=== PATIENT | female | born 1960 ===

== ENCOUNTER → 2018-04-14 | Outpatient (CLI) | payer OTHER ==
--- NOTE | 2018-04-14 15:11 | US ---
EXAMINATION TYPE: US pelvic complete DATE OF EXAM: 04/14/2018 COMPARISON: NONE CLINICAL HISTORY: N95.0 Post Sandra Bleeding. Patient had one episode of postmenopausal spotting in Sep tember TECHNIQUE: . Transabdominal sonographic images of the pelvis were acquired. Transvaginal exam not d one- patient speaks broken [place] and did not understand most directions nor could she answer many h istory questions Date of LMP: Unknown EXAM MEASUREMENTS: Uterus: 5.7 x 2.5 x 3.2 cm Endometrial Stripe: 0.3 cm Right Ovary: 1.1 x 0.8 x 0.9 cm Left Ovary: 1.8 x 0.9 x 1.3 cm 1. Uterus: Anteverted Hypoechoic area visualized fundus measuring 1.4 x 1.3 x 1.8 cm, probable fib roid 2. Endometrium: wnl 3. Right Ovary: wnl 4. Left Ovary: wnl 5. Bilateral Adnexa: wnl 6. Posterior cul-de-sac: wnl IMPRESSION: 1. Probable Leiomyomatous change of the uterine fundus.
== END | disposition home or self-care (01) ==
LOC: RADUSWWP 13:26
PROVIDERS: ATTEND Obstetrics & Gynecology
DX: N95.0 Postmenopausal bleeding (principal)
CPT/HCPCS: 76856